=== PATIENT | male | born 2005 | race Caucasian/White ===

== ENCOUNTER 2025-09-15 11:29 | Outpatient (AMB) | payer BC, SELFPAY ==
--- NOTE | 2025-09-15 11:32 | MHC.PC.OV ---
Vital Signs 09/15/25 11:39 Height 5 ft 8 in Weight 142 lb 2 oz BMI 21.6 BP 120/72 Blood Pressure Location Rt brachial Position Sitting Respiration 14 Pulse 74 Pulse Source Pulse Oximeter Temp 98.2 F Temp Source Temporal Artery Scan Pulse Oximetry (%) 99 Oxygen Delivery Method Room Air Intake Visit Reasons: est care/hemotomcrosis Intake Note: Harjit presents in the office today to establish care. Used Equipment Sales Representative Required: No Allergies No Known Allergies Allergy (Verified 09/15/25 11:36) Tobacco use date assessed: 09/15/25 Dental Screening Dental Screen Date: 09/15/25 Did you have a dental visit in the last 12 months?: Yes Did you have a dental problem in the last 6 months where you did not have access to dental care?: No Was dental information given to patient?: Patient has dentist HPI HPI Comments History of Present Illness Details This is a 20-year-old male here to establish care. He is accompanied by his mother. Gastroparesis: followed by gastroenterology. Diagnosed Summer 2023. Thought to be due to decreased oral intake secondary to taking stimulants. He has a follow up scheduled tomorrow. Patient endorses stable symptoms. He had 1 episode of vomiting when he went out to eat for his birthday and also had alcohol and desserts. Hemochromatosis -followed by heme/onc, Dr. Whitfield. Diagnosed Last year. Runs on both sides of the family. Patient has therapeutic phlebotomy. ADHD-patient has online therapist and medication prescriber, [place]. Last CPE January 2025. Received flu vaccine at [facility] this year. Studies at [facility] [employer] [employer]. 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 He works at [employer]. ROS: Constitutional: No unexplained weight loss, fever, chills, fatigue or night sweats. Gastrointestinal: see HPI Psychiatric: No depression or anxiety Physical exam: Constitutional: Alert, in no distress. Neck: Supple, Full range of motion. No lymphadenopathy. No palpable thyroid masses. Respiratory: Clear to auscultation. Cardiovascular: S1 S2 regular. No murmurs Gastrointestinal: Abdomen soft, non-tender, non-distended. Normal bowel sounds. No palpable masses. Psychiatric: Normal mood and affect [facility] Medical History (Updated 09/15/25 @ 13:05 by SALOME Kwok) ADHD Hemochromatosis, hereditary Gastroparesis Surgical History (Updated 09/15/25 @ 13:05 by SALOME Kwok) History of wisdom tooth extraction Family History (Updated 09/15/25 @ 13:08 by SALOME Kwok) Mother FH: mental illness Anxiety Mitral valve prolapse Hyperlipidemia Father Anxiety Hyperlipidemia Paternal Grandfather CVA (cerebral vascular accident) Paternal Uncle Seizure, Onset Age: 33 Paternal Grandmother Colon cancer Multiple sclerosis Maternal Grandmother Breast cancer Renal cancer Bladder cancer Social History (Updated 09/15/25 @ 11:39 by Marbella Carrasquillo [facility]) Housing: House Alcohol intake: current Patient Tobacco Use Status: Never used Tobacco e-Cigarette/Vaping Use: Never Used Second Hand Smoke Exposure: No Substance Use Type: Marijuana service: No Current occupational status: student Current occupational exposures/hazards: No Cognitive needs: No Hearing needs: No Vision needs: No Questionnaire PHQ-9 Over the last 2 weeks, how often have you been bothered by any of the following problems? 1. Little interest or pleasure in doing things: not at all 2. Feeling down, depressed, or hopeless: not at all 3. Trouble falling or staying asleep, or sleeping too much: not at all 4. Feeling tired or having little energy: several days 5. Poor appetite or overeating: more than half the days 6. Feeling bad about yourself - or that you are a failure or have let yourself or your family down: not at all 7. Trouble concentrating on things, such as reading the newspaper or watching television: not at all 8. Moving or speaking so slowly that other people could have noticed. Or the opposite - being so fidgety or restless that you have been moving around a lot more than usual: more than half the days 9. Thoughts that you would be better off or of hurting yourself in some way: not at all Total score: 5 Depression Screening Interpretation: Positive Depression Screening Follow-up: Other (Denies depression. Appetite related to gastroparesis and stimulant.) Depression Screening Done: Yes 98854 - PHQ-9 Billing: Yes Source: Developed by Drs. Uriel Albarran, Hannah Durant, Ayden Oh and colleagues, with an educational neida from [employer]. Thrive Questionnaire Date Thrive assessed: 09/15/25 I am a: Patient What is your living situation today?: I have a steady place to live Within the past 12 months, did the food you bought not last and you didn't have the money to get more?: Never true Within the past 12 months, did you worry whether your food would run out before you got money to buy more?: Never true Do you have trouble paying for medicines?: No Do you have trouble getting transportation to medical appointments?: No Do you have trouble paying your heating and electricity bill?: No Do you have trouble taking care of your child, family member or friend?: No Do you have trouble with day-to-day activities such as bathing, preparing meals, shopping, managing finances, etc.?: No Are you currently unemployed and looking for a job?: Yes Are you interested in more education?: Yes Please select the resources that you would like help with: None Currently or been in a relationship where the following occur: No concerns reported THRIVE Score: 0 AUDIT C Alcohol Use Questionnaire (AUDIT-C) 1. How often do you have a drink containing alcohol?: 2-4 times a month 2. How many drinks containing alcohol do you have on a typical day when you are drinking?: 1 or 2 3. How often do you have six or more drinks on one occasion?: Never Total Score: 2 BLAS-7 AMB Questionnaire BLAS-7 Date BLAS - 7 assessed: 09/15/25 Feeling nervous, anxious, or on edge: 0 = Not at all Not being able to stop or control worryin = Several days Worrying too much about different things: 1 = Several days Trouble relaxin = Several days Being so restless that it is hard to sit still: 0 = Not at all Becoming easily annoyed or irritable: 0 = Not at all Feeling afraid as if something awful might happen: 0 = Not at all Total BLAS-7 score (0-4 normal; 5-9 mild; 10-14 moderate; 15-21 severe): 3 Source: Developed by Drs. Uriel Albarran, Hannah Durant, Ayden Oh and colleagues, with an educational neida from [employer]. BLAS-7 Assessment Billing BLAS-7 Assessment Tool: BLAS-7 Assessment 72339 Physical exam (Primary Care) Vital Signs: Last Vital Signs Temp 98.2 F 09/15/25 11:39 Pulse 74 09/15/25 11:39 Resp 14 09/15/25 11:39 BP 120/72 09/15/25 11:39 Pulse Ox 99 09/15/25 11:39 Oxygen Delivery Method Room Air 09/15/25 11:39 BMI result Body Mass Index 21.6 Tobacco/Smoking Status: Tobacco use Status Tobacco use date assessed 09/15/25 09/15/25 11:46 Patient Tobacco Use Status Never used Tobacco 09/15/25 11:46 e-Cigarette/Vaping Use Never Used 09/15/25 11:46 PHQ-9: PHQ-9 Score PHQ-9: Total score 5 09/15/25 11:46 Depression Screening Interpretation: Positive Depression Screening Follow-up: Other (Denies depression. Appetite related to gastroparesis and stimulant.) Thrive Assessment: Date of Thrive Assessment Date Thrive assessed 09/15/25 09/15/25 11:35 Currently or been in a relationship where the following occur: No concerns reported Coding Level of Care Code New Pt Level 3 (70421) Diagnoses ADHD F90.9 Gastroparesis K31.84 Hemochromatosis, hereditary E83.110 Additional Codes BLAS-7 Assessment Billing - BLAS-7 Assessment Tool: BLAS-7 Assessment 77867 ([id number]) PHQ-9 - 12835 - PHQ-9 Billing: Yes ([id number]) Assessment & Plan Assessment & Plan (1) ADHD: Code(s): F90.9 - Attention-deficit hyperactivity disorder, unspecified type Category: Medical Plan: Patient says his symptoms are well-controlled on Adderall. He has a therapist and med prescriber. Encouraged him to discuss gastroparesis and decreased appetite with her. He was on a nonstimulant alternative, Strattera, but he did not tolerate the other side effects. (2) Gastroparesis: Code(s): K31.84 - Gastroparesis Category: Medical Plan: He has follow up with Gastroenterology tomorrow. (3) Hemochromatosis, hereditary: Code(s): E83.110 - Hereditary hemochromatosis Category: Medical Plan: Followed by Heme-Onc. Patient has therapeutic phlebotomy. Plan Patient will schedule a physical exam in January.
[2025-09-15 11:39] VITALS: BP 120/72; PULSE 74; RESP 14; TEMP 36.8; O2SAT 99; BMI 21.6
--- OUTSIDE RECORDS SUMMARY | 2025-09-15 14:44 | XMS_ITS | Clinical Summary ---
Author Organization [facility] [address] [facility] Address [address] [place] [address] Phone Care Team Providers Care Roll Hauler Name Role Phone Uriel Phelan MD Primary Care Provider [phone] Allergies No known active allergies Medications atomoxetine (STRATTERA) 60 mg capsule Take 1 capsule (60 mg total) by mouth 1 (one) time each day in the morning. 12/03/2024 Active amphetamine-dex troamphetamine XR (ADDERALL XR) 10 mg 24 hr capsule 03/05/2025 Active atomoxetine (STRATTERA) 40 mg capsule 03/05/2025 Active omeprazole (PriLOSEC) [address] capsuleIndicati ons:Regurgitati on of food,Dyspepsia Take 1 capsule (40 mg total) by mouth 1 (one) time each day. Do not crush or chew. 90 each 3 03/10/2025 Active Active Problems Problem Noted Date Diagnosed Date Chronic motor tic 04/07/2025 Class 1 obesity 04/07/2025 OCD (obsessive compulsive disorder) 04/07/2025 ADHD 03/10/2025 Hemochromatosis 03/10/2025 Overview (03/10/2025): Followed by hematology Has not required phlebotomy Immunizations Immunization Administration Dates Next Due HPV 9-valent (Gardisil) 9yo to less than 46yo 03/04/2020,02/25/2019 Hepatitis A Pediatric (Havri x; Vaqta) 12mo to less than 19yo 01/24/2018,01/17/2017 Influenza Quadrivalent, 0.5m l, preservative free (Fluarix; FluLaval; Fluzone) ages 6mo and older (Afluria) 3yo and older 08/31/2022,08/02/2021,07/21/2018,09/07 Influenza Quadrivalent, with preservative (Fluzone; Afluria) 6mo and older 07/14/2019 Meningococcal B, Recombinant (Bexsero) 16yo to less than 24yo 05/11/2023,03/09/2023 Meningococcal MCV4P 03/25/2021,01/14/2016 Tdap Tetanus diptheria acell ular pertussis (Boostrix; Adacel) 7yo and older 01/14/2016 Social History Tobacco Use Types Packs/Day Years Used Date Smoking Tobacco: Never Smokeless Tobacco: Never Tobacco Cessation:Counseling Given: Not Answered Alcohol Use Standard Drinks/Week Comments Never 0 (1 standard drink = 0.6 oz pur e alcohol) Sex and Gender Information Value Date Recorded Sex Assigned at Male 02/18/2025 2:25 PM EDT Legal Sex Male 2:18 PM EDT Gender Identity Male 02/18/2025 2:25 PM EDT Sexual Orientation Straight 03/11/2025 9: 27 AM EDT Last Filed Vital Signs Vital Sign Reading Time Taken Comments Blood Pressure - - Pulse - - Temperature - - Respiratory Rate - - Oxygen Saturation - - Inhaled Oxygen Concentration - - Weight 66.2 kg (146 lb) 04/21/2025 7:57 AM EDT Height 172.7 cm (5' 8 ) 04/21/2025 7:57 AM EDT Body Mass Index 22.2 04/21/2025 7:57 AM EDT Plan of Treatment Upcoming Encounters Date Type Department Care Team (Late st Contact Info) Description 09/16/2025 8:00 AM EST Office Visit Gastroenterology - [address] [phone] Marcelino Gonsales MD [address] [address] Health Maintenance Due Date Last Done Comments Drug Screen 2004 Non-Opioid Controlled Substance Agreement 2004 Hepatitis B Vaccines (1 of 3 - 19+ 3-dose series) 2023 Depression Screening 09/25/2024 Annual Well Child Visit (3-21 years old) 02/19/2025 HIV Screening 02/19/2025 Hepatitis C Screening 02/19/2025 Social Influencers of Health Screening 02/19/2025 COVID-19 Vaccine ( season) 2025 08/31/2022, 12/03/2021, 01/30/2021, Additional history exists Influenza Vaccine (#1) 2025 2, 08/02/2021, 07/14/2019, Additional history exists DTaP,Tdap,and Td Vaccines (2 - Td or Tdap) 01/13/2026 01/14/2016 RSV Immunization Adult Patients (1 - 1-dose 75+ series) 2079 Hepatitis A Vaccines Completed 01/24/2018, 01/18/20 17 HPV Vaccines Completed 03/04/2020, 02/25/2019 Meningococcal ACWY Vaccine Completed 03/25/2021, Meningococcal B Vaccine Completed 05/11/2023, 03/09 HIB Vaccines Aged Out No longer eligi ble based on patient's age to complete this topic IPV Vaccines Aged Out No longer eligi ble based on patient's age to complete this topic MMR Vaccines Aged Out No longer eligi ble based on patient's age to complete this topic Pneumococcal Vaccine: Pediatrics (0 to 5 Years) and At-Risk Patients (6 to 49 Years) Aged Out No longer eligible based on patient's age to complete this topic RSV Immunization Patients Under 20 months Aged Out No longer eligible based on patient's age to complete this topic Varicella Vaccines Aged Out No longer eligible based on patient's age to complete this topic Insurance [facility] Care Teams Roll Hauler Relationship Specialty Start Date End Date Uriel Phelan MD [address] [place] [address] PCP - General Pediatrics 02/18/25
== END 2025-09-15 12:12 | disposition home or self-care (01) ==
LOC: HO.HMCFM 11:30
PROVIDERS: PCP Physician Assistant Medical; Visit Provider Physician Assistant Medical
DX: F90.9 Attention-deficit hyperactivity disorder, unspecified type (principal); K31.84 Gastroparesis; E83.110 Hereditary hemochromatosis

== ENCOUNTER → 2025-09-15 11:29 | Outpatient (BNVA) | payer BC, SELFPAY | PROVIDERS: PCP Physician Assistant Medical; Visit Provider Physician Assistant Medical | DX: F90.9 Attention-deficit hyperactivity disorder, unspecified type (principal); K31.84 Gastroparesis; E83.110 Hereditary hemochromatosis; Z79.899 Other long term (current) drug therapy; Z13.31 Encounter for screening for depression; Z13.39 Encounter for screening examination for other mental health and behavioral disorders | CPT/HCPCS: 96127 ==